=== PATIENT | male | born 1995 | race Caucasian/White ===

== ENCOUNTER 2019-12-05 03:41 | Emergency (ER) | payer SELFPAY ==
[~2019-12-05] VITALS: Ht 167.6 cm; Wt 81.6 kg
[2019-12-05 03:46] VITALS: Ht 167.6 cm; Wt 81.6 kg
[2019-12-05 05:12] LABS: BASOPHIL % 0.3 % (0-2); PLATELET COUNT 288 x10^3mcL (130-400); RED CELL DISTRIBUTION WIDTH 12.9 % (11.5-14.5)
[2019-12-05 05:33] LABS: CALCIUM 8.4 mg/dL (8.5-10.1); CARBON DIOXIDE 28.4 mmol/L (21-32); CHLORIDE SERUM 102 mmol/L (98-107); CREATININE SERUM 1.2 mg/dL (0.7-1.3); GFR1 > 60 mL/min; GLUCOSE SERUM 86 mg/dL (74-106); POTASSIUM SERUM 3.5 mmol/L (3.5-5.1); SODIUM SERUM 138 mmol/L (136-145)
[2019-12-05 05:38] LABS: ALBUMIN 3.6 g/dL (3.4-5.0); ALKALINE PHOSPHATASE 131 U/L (46-116); ALT/SGPT 37 U/L (16-63); AST/SGOT 41 U/L (15-37); BILIRUBIN TOTAL 0.48 mg/dL (0.20-1.00); TOTAL PROTEIN, SERUM 7.4 g/dL (6.4-8.2)
[2019-12-05 09:31] VITALS: BP 112/61
== END 2019-12-05 09:31 | disposition home or self-care (01) ==
LOC: ED 03:41 → EDBD 03:41 → ED 09:31
PROVIDERS: Student in an Organized Health Care Education/Training Program
DX: F11.129 Opioid abuse with intoxication, unspecified (principal); R41.82 Altered mental status, unspecified
CPT/HCPCS: G0480; J2310